=== PATIENT | male | born 1990 | race American Indian/Alaskan Native ===

== ENCOUNTER 2020-10-02 18:38 | Emergency (ER) | payer SELFPAY ==
--- NOTE | 2020-10-02 18:48 | ED.OVERDOSE ---
HPI - Overdose General Chief Complaint: Overdose Stated Complaint: od Time Seen by Provider: 10/02/20 18:43 Source: patient and EMS Mode of arrival: EMS Limitations: other (intoxication) History of Present Illness HPI Narrative: 29 yo male admits to smoking PCP was found by EMS with snoring respiration and pinpoint pupils received 4mg narcan IN x 2 by bystanders then 0.5mg IV narcan with EMS, he denies knowing he took opiates and states he has never used them before pateient denies SI/HI MD complaint: accidental overdose Onset (ago): minute(s) Context: Accidental Overdose: wanted to get high Treatments Prior to Arrival: narcan Related Data Home Medications Medication Instructions Recorded Confirmed No Known Home Meds 10/02/20 10/02/20 Allergies Allergy/AdvReac Type Severity Reaction Status Date / Time shellfish derived Allergy Unknown ITCHY Verified 10/02/20 21:28 [SHELLFISH DERIVED] THROAT/EYE SWELLING Review of Systems Review of Systems: Constitutional : No Fever, pos Chills ENT/Mouth : No Ear Pain, No Nasal Congestion, No sore throat Eyes: No Eye Pain, No Swelling, No Redness Cardiovascular : No Chest Pain, No SOB Respiratory : No Cough, No Sputum, No Dyspnea Gastrointestinal : No Nausea, No Vomiting, No Diarrhea, No Hematochezia, No Melena Genitourinary : No Dysuria, No Urinary Frequency, No Hematuria Musculoskeletal : No Myalgias Skin : No Skin Lesions, No rash Neuro : No Weakness, No Numbness, No Paresthesias, No Dizziness, No Headache Psych : positive Anxiety, no Depression, no SI/HI Heme/Lymph: No Lymphadenopathy Endocrine : No Polyuria, No Polydipsia All other systems reviewed and are negative REPLACED BY [facility] Past Medical History Attestation statement: The following information was validated with the patient. Medical History Substance abuse Social History Social History Smoking Status: Current some day smoker Use of substances other than those prescribed or required for medical reasons: Yes Substance Use Type: Hallucinogens Substance Use Frequency: Socially Last Used Substance: Just Prior to Admission Advance Directives: No Advance Directives Information Provided: No Physical Exam Vital Signs: Vital Signs: Last Vital Signs Temp 97.5 F 10/02/20 19:58 Pulse 74 10/02/20 22:00 Resp 9 L 10/02/20 22:00 BP 102/74 10/02/20 22:00 Pulse Ox 98 10/02/20 22:00 Body Mass Index 27.3 Appearance: Alert. Oriented X3. No acute distress. Anxious slightly intoxicated Eyes: Pupils equal, round and reactive to light. 4mm some nystagmus vertical noted ENT: Pharynx normal. Neck: Normal inspection. Neck supple. CVS: Normal heart rate and rhythm. Pulses normal. Respiratory: No respiratory distress. Breath sounds normal. Abdomen: Soft and non-tender. Skin: Skin warm and dry. Normal skin color. Normal skin turgor. Extremities: No lower extremity edema. No calf ttp Neuro: Oriented X 3. No motor deficit. No sensory deficit. Course Course Course Narrative: patient easily woken will allow him to continue to rest at this time, once more awake can be DC MDM - Overdose MDM Narrative Medical decision making narrative: 29 yo male states he thought he was using PCP but then required narcan multiple doses - will need observation, denies SI/HI, states he doesn't use heroin, he has no signs of trauma. Discharge Plan Discharge Clinical Impression: Drug overdose Qualifiers: Encounter type: initial encounter Injury intent: accidental or unintentional Qualified Code(s): T50.901A - Poisoning by unspecified drugs, medicaments and biological substances, accidental (unintentional), initial encounter Patient Disposition: Home, Self-Care Instructions: Polysubstance Abuse (ED) Additional Instructions: return to ED for any worsening symptoms or concerns Prescriptions: No Action No Known Home Meds RF: 0
[2020-10-02 18:56] VITALS: BP 110/80; BP 133/92; PULSE 91; RESP 12; TEMP 36.4; O2SAT 100; O2SAT 99; BMI 27.3
[2020-10-02 19:58] VITALS: BP 100/65; PULSE 93; RESP 12; TEMP 36.4; O2SAT 100
[2020-10-02 22:00] VITALS: BP 102/74; PULSE 74; RESP 9; O2SAT 98
--- NOTE | 2020-10-02 23:12 | PC.NURSE ---
patient sleeping. Respiratory rate equal and unlabored. Patient still unable to give urine sample.
[2020-10-03] VITALS: BP 111/69; PULSE 84; RESP 16; O2SAT 98
[2020-10-03 02:00] VITALS: BP 111/69; PULSE 84; RESP 16; TEMP 36.4; O2SAT 98
[2020-10-03 04:00] VITALS: BP 109/64; PULSE 78; RESP 13; O2SAT 98
== END 2020-10-03 04:20 | disposition home or self-care (01) ==
LOC: HO.ED 18:58
PROVIDERS: Emergency Provider Emergency Medicine
DX: T40.991A Poisoning by other psychodysleptics [hallucinogens], accidental (unintentional), initial encounter (principal); F17.200 Nicotine dependence, unspecified, uncomplicated; Z71.6 Tobacco abuse counseling; Y92.9 Unspecified place or not applicable
CPT/HCPCS: 99283; 99285

== ENCOUNTER 2020-11-08 07:10 | Emergency (ER) | payer OTHER, SELFPAY ==
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
[2020-11-08 07:22] VITALS: BP 120/62; PULSE 70; RESP 18; TEMP 36.9; O2SAT 97; BMI 28.2
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
== END 2020-11-08 08:58 | disposition home or self-care (01) ==
PROVIDERS: Emergency Provider Emergency Medicine
DX: S29.012A Strain of muscle and tendon of back wall of thorax, initial encounter (principal); V43.62XA Car passenger injured in collision with other type car in traffic accident, initial encounter; F16.10 Hallucinogen abuse, uncomplicated; F17.200 Nicotine dependence, unspecified, uncomplicated; Y93.89 Activity, other specified; Y92.414 Local residential or business street as the place of occurrence of the external cause; Y99.9 Unspecified external cause status
CPT/HCPCS: 72072; 72100; 99283

== ENCOUNTER 2021-10-12 11:49 | Outpatient (REF) | payer SELFPAY ==
[2021-10-12 12:15] LABS: Binax Internal Control QC Valid; Binax Now Covid-19 Ag Positive (Negative)
== END 2021-10-12 11:50 | disposition home or self-care (01) ==
LOC: HO.LAB 11:49
PROVIDERS: Visit Provider Internal Medicine
DX: Z20.822 Contact with and (suspected) exposure to COVID-19 (principal)
CPT/HCPCS: 36415; C9803

== ENCOUNTER 2023-05-23 09:39 | Emergency (ER) | payer MEDICAID, SELFPAY ==
[2023-05-23] VITALS (7 sets, daily range): BP systolic 102–142; BP diastolic 46–98; PULSE 59–79; RESP 13–16; TEMP 36.2–36.8; O2SAT 90–99; BMI 29.0
--- NOTE | ~2023-05-23 | XR_ITS ---
EXAMINATION: XR CHEST CLINICAL INFORMATION: Shortness of breath COMPARISON: None available. TECHNIQUE: Frontal view of the chest was obtained. FINDINGS: No significant abnormality is noted involving the heart, lungs, mediastinum, bony thorax or soft tissues. XR/XR chest 1V IMPRESSION: Unremarkable examination.
--- NOTE | 2023-05-23 09:54 | PC.NURSE ---
Patient found sleeping in car, admits to drinking 3 beers and doing 1 bag of pcp about 3 hours ago. Sleepy but arousable to tactile stimulation. alert and oriented. Denies pain, changed over into hospital attire.
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
[2023-05-23] MEDS: Naloxone HCl Nasal 4 MG SPRAY NOSTRILALT (11:04)
--- NOTE | 2023-05-23 11:06 | PC.NURSE ---
Patient alert to verbal stimulation but lethargic, narcan given per md order
[2023-05-23 11:41] LABS: MANUAL DIFF FLAG NO
[2023-05-23 11:59] LABS: Acetaminophen LAB < 17 mcg/mL (<30); Salicylate < 5.0 mg/dL (15-30)
[2023-05-23 12:00] LABS: Alanine Aminotransferase 20 U/L (0-40); Albumin Level 4.5 g/dL (3.5-5.0); Alkaline Phosphatase 108 U/L (39-117); Anion Gap 10 (12-20); Aspartate Amino Transferase 18 U/L (5-37); Bilirubin Total 0.4 mg/dL (0.0-1.0); Blood Urea Nitrogen 12 mg/dL (9-16); Calcium 9.7 mg/dL (8.4-10.2); Carbon Dioxide 29 mmol/L (22-29); Chloride 108 mmol/L (96-108); Creatinine Clr Calc Pharmacy 110.1; Estimated Glomerular Filt Rate > 60; Ethanol < 10 mg/dL; Glucose Random 84 mg/dL (60-115); Potassium 4.1 mmol/L (3.3-5.1); Sodium 143 mmol/L (135-145); Total Protein 7.8 g/dL (6.5-8.0)
[2023-05-23 12:04] LABS: Basophils Percent Auto 0.4 % (0-2); Eosinophils Absolute Auto 0.2 X10*3/uL (0.0-0.4); Eosinophils Percent Auto 2.8 % (0-4); Hematocrit 45.2 % (42.0-52.0); Imm Gran Abs Auto 0.03 X10*3/uL (0.00-0.03); Imm Gran Pct Auto 0.4 % (0.0-0.4); Lymphocytes Absolute Auto 2.6 X10*3/uL (1.2-4.9); Lymphocytes Percent Auto 32.2 % (20-40); Mean Corpuscular Hemoglobin 26.8 pg (27.0-33.0); Mean Corpuscular Volume 86.4 fL (80.0-98.0); Mean Platelet Volume 10.8 fL (9.4-12.4); Monocytes Absolute Auto 0.9 X10*3/uL (0.1-1.2); Monocytes Percent Auto 10.9 % (2-11); Neutrophils Absolute Auto 4.3 x10*3/uL (2.0-8.3); Neutrophils Percent Auto 53.3 % (45-73); Platelet Count 282 X10*3/uL (160-400); Red Blood Count 5.23 X10*6/uL (4.60-5.80); Red Cell Distribution Width 14.3 % (11.0-16.0); White Blood Count 8.1 X10*3/uL (4.8-10.8)
--- NOTE | 2023-05-23 12:31 | PC.NURSE ---
Seen by care team does not want detox at this time. Provided with food and fluids per patients request.
--- NOTE | 2023-05-23 12:39 | MHC.RECOVSUP ---
Met with pt in ED18 who is here for STEFFANY. Pt reports taking 1 percocet orally a day with no history or ATS or MAT, pt has a history of overdosing 2 times with the last one 2 years ago. Pt is currently not interested in ATS and has no other questions or concerns at this time.
--- NOTE | 2023-05-23 14:09 | PC.NURSE ---
Resting comfortably in bed, rr even and unlabored, nsr on monitor
--- NOTE | 2023-05-23 19:16 | PC.NURSE ---
assumed care of patient at 1900, pt laying in bed comfortably, offers no complaints or concerns to this RN at this time. Pt respirations even and unlabored, skin pwd, normal sinus on monitor. Awaiting D/C orders from CLIFF zapata
== END 2023-05-23 19:36 | disposition home or self-care (01) ==
PROVIDERS: Physician Assistant; Emergency Provider Emergency Medicine
DX: F16.10 Hallucinogen abuse, uncomplicated (principal); R06.02 Shortness of breath
CPT/HCPCS: 36415; 71045; 80053; 80143; 80179; 80307; 85025; 99284; 99285

== ENCOUNTER 2023-06-05 18:40 | Emergency (ER) | payer MEDICAID, SELFPAY ==
[2023-06-05 19:02] VITALS: BP 129/84; PULSE 98; RESP 18; TEMP 36.8; O2SAT 98; BMI 29.0
--- NOTE | 2023-06-05 20:54 | PC.NURSE ---
this rn assumed care of pt @ 1900. pt placed on cardiac and spo2 monitor. lights dimmed. pt calm and cooperative
--- NOTE | 2023-06-05 21:46 | ED_ITS ---
HPI - General Adult General Chief complaint: ETOH/Substance Use Stated complaint: narcotics Time Seen by Provider: 06/05/23 21:03 Source: patient Mode of arrival: ambulatory History of Present Illness HPI narrative: 32-year-old male who is brought in by police for attempting to shoplift children's toys from [employer] while high on PCP. He denies any current complaints of shortness of breath, chest pain/palpitations, abdominal discomfort or nausea/vomiting. Patient states that he uses PCP everyday and denies any IVDA, denies any suicidal ideation and denies interest in detox. Related Data Previous Rx's Medication Instructions Recorded cyclobenzaprine 10 mg tablet 10 mg PO TID PRN muscle spasm #14 11/08/20 tabs ibuprofen 600 mg tablet 600 mg PO Q6H PRN pain #30 tabs 11/08/20 lidocaine 4 % topical patch 1 patch topical DAILY PRN pain #10 11/08/20 ea naloxone 4 mg/actuation nasal 4 mg intranasal Q2M PRN opioid 05/23/23 spray (Narcan) overdose #2 ea Allergies Allergy/AdvReac Type Severity Reaction Status Date / Time shellfish derived Allergy Unknown ITCHY Verified 10/02/20 21:28 [SHELLFISH DERIVED] THROAT/EYE SWELLING Review of Systems Review of Systems: Pertinent positives and negatives as stated in HPI [facility] Past Medical History Source: nursing notes reviewed Medical History Substance abuse Social History Social History Alcohol intake: current Alcohol intake frequency: a few times a week Smoked in Last 30 Days: Yes Use of substances other than those prescribed or required for medical reasons: Yes Substance Use Type: Other Advance Directives: No Advance Directives Information Provided: No Physical Exam ED Vital Signs: Vital Signs - 24 hr 06/05/23 19:02 Temperature 98.2 F Pulse Rate 98 Respiratory Rate 18 Blood Pressure 129/84 Pulse Oximetry 98 Oxygen Delivery Method Room Air BMI result Body Mass Index 29.0 VITAL SIGNS: Reviewed. GENERAL: Well developed, well nourished, in no acute distress. HEAD: Normocephalic/atraumatic EYES: PERRLA, EOMI EARS: Ext canals without abnormality LUNGS: Normal breath sounds. No adventitious sounds or accessory muscle use. SpO2<98> CARDIOVASCULAR: Regular rate and rhythm without noted murmurs ABDOMEN: Soft, non-tender, non-distended with bowel sounds. MUSCULOSKELETAL: No tenderness, deformities, or effusions noted on gross inspection. EXTREMITIES: No cyanosis, clubbing or edema. SKIN: Inspection of the skin reveals no rashes NEUROLOGIC: Alert and oriented x 4. Strength and sensation to light touch were grossly intact x 4. Medical Decision Making Medical Decision Making MDM Narrative: 32-year-old male with history and clinical presentation of chronic PCP use and not currently interested in detox and denies any suicidal ideation, patient has been observed for 2 hours and will be discharged with home Narcan. Patient will not be discharged until he is known to have a safe ride. Differential Diagnosis Differential Diagnoses: The differential diagnosis associated with the presentation includes Please see the discussion above Discharge Plan Discharge Clinical Impression: Phencyclidine (PCP) use disorder, mild, abuse Patient Disposition: Home, Self-Care Instructions: Polysubstance Abuse (ED) Additional Instructions: 1. Resume all home medications as prescribed. 2. Please do not hesitate to return to the emergency room for any help that you would like in stopping drug use. Prescriptions: No Action cyclobenzaprine 10 mg tablet 10 mg PO TID PRN (Reason: muscle spasm) Qty: 14 0RF lidocaine 4 % adhesive patch,medicated 1 patch topical DAILY PRN (Reason: pain) Qty: 10 0RF Rx Instructions: may leave on for up to 12 hrs ibuprofen 600 mg tablet 600 mg PO Q6H PRN (Reason: pain) Qty: 30 0RF naloxone [Narcan] 4 mg/actuation spray,non-aerosol 4 mg intranasal Q2M PRN (Reason: opioid overdose) Qty: 2 0RF Rx Instructions: spray 1 dose into ONE nostril; alternate nostrils w each dose until help arrives
[2023-06-05 21:52] VITALS: BP 102/59; PULSE 75; RESP 13; TEMP 36.9; O2SAT 96
[2023-06-06 00:44] VITALS: BP 98/58; PULSE 80; RESP 12; O2SAT 98
--- NOTE | 2023-06-06 01:12 | PC.NURSE ---
late entry- pt discharge orders placed. pt remains sleepy at this time. pt arousable to name and painful stimuli. per chargeback analyst okay to let pt sleep at this time
[2023-06-06 02:31] VITALS: BP 119/83; PULSE 58; RESP 17; TEMP 36.4; O2SAT 100
[2023-06-06] MEDS: Naloxone HCl Nasal TAKE HOME 4 MG SPRAY 8 MG NOSTRILALT (02:31)
--- NOTE | 2023-06-06 02:35 | PC.NURSE ---
pt awake and states ready to go home. vss. pt ambulates independently. pt provided with home narcan. pt calm and cooperative. pt provided with discharge packet. pt verbalized understanding of discharge plan. pt walked to decon to obtain belongings
== END 2023-06-06 02:39 | disposition home or self-care (01) ==
PROVIDERS: Emergency Provider Student in an Organized Health Care Education/Training Program
DX: F16.10 Hallucinogen abuse, uncomplicated (principal); Z79.899 Other long term (current) drug therapy
CPT/HCPCS: 99283; 99284

== ENCOUNTER 2023-07-28 02:27 | Emergency (ER) | payer MEDICAID, SELFPAY ==
--- NOTE | 2023-07-28 | ECG_ITS ---
Test Reason : AMS Blood Pressure : / mmHG Vent. Rate : 061 BPM Atrial Rate : 061 BPM P-R Int : 134 ms QRS Dur : 094 ms QT Int : 422 ms P-R-T Axes : 064 067 033 degrees QTc Int : 424 ms Normal sinus rhythm Normal ECG When compared with ECG of 16-JUL-2018 00:17, No significant change was found Referred By: Generic ED Physician Electronically Signed By:CAIN SOLARES MD
[2023-07-28 02:40] VITALS: BP 138/98; BP 140/80; PULSE 61; PULSE 63; RESP 18; TEMP 36.4; O2SAT 97; BMI 28.0
--- NOTE | 2023-07-28 02:43 | PC.NURSE ---
Pt presents to ED via EMS for AMS. Per EMS, pt was found with PD on the sidewalk. Pt was confused, not answering questions appropriately. Pt admitted to drug use, but was unable to tell us what he took. Pt was tracking okay, pupils PERRLA. Pt is unable or unwilling to answer questions verbally but can nod yes or no in response. Pt was connected to monitoring manager, EKG obtained, and pt is getting bloodwork at this time.
[2023-07-28 02:46] VITALS: BP 140/88; PULSE 61; RESP 18; TEMP 36.4; O2SAT 100
[2023-07-28] MEDS: Naloxone HCl Nasal 4 MG SPRAY NOSTRILALT (02:50)
[2023-07-28 02:52] LABS: Basophils Percent Auto 0.2 % (0-2); Eosinophils Absolute Auto 0.1 X10*3/uL (0.0-0.4); Hematocrit 45.6 % (42.0-52.0); Hemoglobin 14.3 g/dl (14.0-18.0); Imm Gran Abs Auto 0.02 X10*3/uL (0.00-0.03); Imm Gran Pct Auto 0.2 % (0.0-0.4); Lymphocytes Absolute Auto 2.3 X10*3/uL (1.2-4.9); Lymphocytes Percent Auto 25.2 % (20-40); MANUAL DIFF FLAG NO; Mean Corpuscular HGB Conc 31.4 g/dl (31.0-36.0); Mean Corpuscular Hemoglobin 26.6 pg (27.0-33.0); Mean Corpuscular Volume 84.8 fL (80.0-98.0); Mean Platelet Volume 10.4 fL (9.4-12.4); Monocytes Absolute Auto 0.7 X10*3/uL (0.1-1.2); Neutrophils Absolute Auto 6.1 x10*3/uL (2.0-8.3); Neutrophils Percent Auto 65.4 % (45-73); Platelet Count 288 X10*3/uL (160-400); Red Blood Count 5.38 X10*6/uL (4.60-5.80); Red Cell Distribution Width 14.1 % (11.0-16.0); White Blood Count 9.3 X10*3/uL (4.8-10.8)
--- NOTE | 2023-07-28 02:54 | ED.AMS ---
HPI - Altered Mental Status General Chief Complaint: Altered Mental Status Stated Complaint: ams Time Seen by Provider: 07/28/23 02:39 Source: patient and EMS Mode of arrival: EMS History of Present Illness HPI narrative: 32-year-old male who is brought in by EMS after please department found patient on the sidewalk and EMS reports that patient acting altered . Initially, patient with minimal verbal interaction but answering yes and no to questions. Patient admits to drug use but is unsure of what drugs he took today. Related Data Previous Rx's Medication Instructions Recorded cyclobenzaprine 10 mg tablet 10 mg PO TID PRN muscle spasm #14 11/08/20 tabs ibuprofen 600 mg tablet 600 mg PO Q6H PRN pain #30 tabs 11/08/20 lidocaine 4 % topical patch 1 patch topical DAILY PRN pain #10 11/08/20 ea naloxone 4 mg/actuation nasal 4 mg intranasal Q2M PRN opioid 05/23/23 spray (Narcan) overdose #2 ea Allergies Allergy/AdvReac Type Severity Reaction Status Date / Time shellfish derived Allergy Unknown ITCHY Verified 10/02/20 21:28 [SHELLFISH DERIVED] THROAT/EYE SWELLING Review of Systems Review of Systems: Pertinent positives and negatives as stated in HPI PMFSH Past Medical History Source: nursing notes reviewed Medical History Substance abuse Social History Social History Alcohol intake: current Alcohol intake frequency: a few times a week Substance Use Type: Other Advance Directives: No Advance Directives Information Provided: Yes Physical Exam ED Vital Signs: Vital Signs - 24 hr 07/28/23 02:40 07/28/23 02:46 Temperature 97.5 F 97.5 F Pulse Rate 63 61 Respiratory Rate 18 18 Blood Pressure 140/80 H 140/88 H Pulse Oximetry 97 100 Oxygen Delivery Method Room Air Room Air BMI result Body Mass Index 28.0 VITAL SIGNS: Reviewed. GENERAL: Well developed, well nourished, in no acute distress. HEAD: Normocephalic/atraumatic EYES: PERRLA, EOMI EARS: Ext canals without abnormality, TMs non-bulging and non-erythematous NOSE: Nares patent bilateral OROPHARYNX: no oral lesions noted, posterior pharynx clear and non-erythematous without noted tonsillar enlargement/erythema/exudates NECK: Supple, no adenopathy LUNGS: Normal breath sounds. No adventitious sounds or accessory muscle use. SpO2<100> CARDIOVASCULAR: Regular rate and rhythm without noted murmurs ABDOMEN: Soft, non-tender, non-distended with bowel sounds. MUSCULOSKELETAL: No tenderness, deformities, or effusions noted on gross inspection. EXTREMITIES: No cyanosis, clubbing or edema. SKIN: Inspection of the skin reveals no rashes NEUROLOGIC: Alert and oriented x 3. Strength and sensation to light touch were grossly intact x 4, cranial nerves 2-12 are grossly intact. Medical Decision Making Medical Decision Making MDM Narrative: 32-year-old male with history and clinical presentation, DDX: Highly suspicious for illicit substance especially on review of prior documentation which demonstrates that he has been here previously for drug overdose, polysubstance abuse as well as PCP use. Will obtain basic labs and toxicology. Patient received 4 mg of Narcan, patient much better at communication, hemodynamically stable. 0337: Informed by nursing that patient left the emergency department. Differential Diagnosis Differential Diagnoses: The differential diagnosis associated with the presentation includes Please see the discussion above Lab Data 07/28/23 02:47 07/28/23 02:47 Labs: Lab Results 07/28/23 Range/Units 02:47 WBC 9.3 (4.8-10.8) X10*3/uL RBC 5.38 (4.60-5.80) X10*6/uL Hgb 14.3 (14.0-18.0) g/dl Hct 45.6 (42.0-52.0) % MCV 84.8 (80.0-98.0) fL MCH 26.6 L (27.0-33.0) pg MCHC 31.4 (31.0-36.0) g/dl RDW 14.1 (11.0-16.0) % Plt Count 288 (160-400) X10*3/uL MPV 10.4 (9.4-12.4) fL Immature Gran % (Auto) 0.2 (0.0-0.4) % Neut % (Auto) 65.4 (45-73) % Lymph % (Auto) 25.2 (20-40) % Christian % (Auto) 8.0 (2-11) % Eos % (Auto) 1.0 (0-4) % Baso % (Auto) 0.2 (0-2) % Lymph # (Auto) 2.3 (1.2-4.9) X10*3/uL Christian # (Auto) 0.7 (0.1-1.2) X10*3/uL Eos # (Auto) 0.1 (0.0-0.4) X10*3/uL Baso # (Auto) 0.0 (0.0-0.2) X10*3/uL Abs Immat Gran (auto) 0.02 (0.00-0.03) X10*3/uL Absolute Neuts (auto) 6.1 (2.0-8.3) x10*3/uL Absolute Nucleated RBC 0.000 (0.0-0.012) X10*3/uL Nucleated RBC % (auto) 0.0 (0.0-0.2) /100WBC Sodium 144 (135-145) mmol/L Potassium 4.1 (3.3-5.1) mmol/L Chloride 110 H (96-108) mmol/L Carbon Dioxide 22 (22-29) mmol/L Anion Gap 16 (12-20) BUN 12 (9-16) mg/dL Creatinine 1.12 (0.5-1.4) mg/dL Estim Creat Clear Calc 117.9 Estimated GFR > 60 Random Glucose 92 (60-115) mg/dL Calcium 9.7 (8.4-10.2) mg/dL Total Bilirubin 0.4 (0.0-1.0) mg/dL AST 16 (5-37) U/L ALT 15 (0-40) U/L Alkaline Phosphatase 117 (39-117) U/L Total Protein 8.4 H (6.5-8.0) g/dL Albumin 4.9 (3.5-5.0) g/dL Ethyl Alcohol < 10 mg/dL Independent Interpretation I performed an independent interpretation of an: EKG Interpretation: Normal sinus rhythm, HR-61, no STEMI, WV/QRS/QTC is within normal limits. Critical Care Time Critical Care Time Critical Care Time: Yes Total Critical Care Time: 30 Attestation: I personally attest to this time spent taking care of the patient. Discharge Plan Discharge Clinical Impression: Mental status alteration, Polysubstance use disorder Patient Disposition: Elopement Prescriptions: No Action cyclobenzaprine 10 mg tablet 10 mg PO TID PRN (Reason: muscle spasm) Qty: 14 0RF lidocaine 4 % adhesive patch,medicated 1 patch topical DAILY PRN (Reason: pain) Qty: 10 0RF Rx Instructions: may leave on for up to 12 hrs ibuprofen 600 mg tablet 600 mg PO Q6H PRN (Reason: pain) Qty: 30 0RF naloxone [Narcan] 4 mg/actuation spray,non-aerosol 4 mg intranasal Q2M PRN (Reason: opioid overdose) Qty: 2 0RF Rx Instructions: spray 1 dose into ONE nostril; alternate nostrils w each dose until help arrives Discharge Date/Time: 07/28/23 03:35
--- NOTE | 2023-07-28 02:58 | PC.NURSE ---
After narcan, pt is now verbal, is able to tell me his name, where he is, and what month it is. However, pt denies drug use at this time and does not remember what happened or how he got to the hospital. Pt denies pain and is not in obvious distress. Pt still seems confused, is staring blankly.
[2023-07-28 03:04] LABS: Ethanol < 10 mg/dL
[2023-07-28 03:05] LABS: Alanine Aminotransferase 15 U/L (0-40); Albumin Level 4.9 g/dL (3.5-5.0); Alkaline Phosphatase 117 U/L (39-117); Anion Gap 16 (12-20); Aspartate Amino Transferase 16 U/L (5-37); Bilirubin Total 0.4 mg/dL (0.0-1.0); Blood Urea Nitrogen 12 mg/dL (9-16); Calcium 9.7 mg/dL (8.4-10.2); Carbon Dioxide 22 mmol/L (22-29); Chloride 110 mmol/L (96-108); Creatinine Clr Calc Pharmacy 117.9; Estimated Glomerular Filt Rate > 60; Glucose Random 92 mg/dL (60-115); Potassium 4.1 mmol/L (3.3-5.1); Sodium 144 mmol/L (135-145); Total Protein 8.4 g/dL (6.5-8.0)
--- NOTE | 2023-07-28 03:29 | PC.NURSE ---
When I entered the pt's room, bed was found to be empty. After searching for th pt, I found him outside of the emergency department, fully dressed in his own clothes (Red striped shirt, black jeans, and garzon backpack.) I explained to the patient that he needs to go back inside so we can figure out what triggered the minimal responsiveness. Pt stated he is going home and would not stay. I attempted to convince pt to stay and complete treatment but he kept replying I'm going home. Charge Nurse Lyndsay and MD Booth are aware. Per MD, pt is not required to stay. Pt was A&Ox4, GCS 15, with strong and steady gait upon leaving the ER.
== END 2023-07-28 03:35 | disposition left against medical advice (07) ==
PROVIDERS: Emergency Provider Student in an Organized Health Care Education/Training Program; PCP Internal Medicine
DX: R41.82 Altered mental status, unspecified (principal); F19.10 Other psychoactive substance abuse, uncomplicated; Z79.899 Other long term (current) drug therapy
CPT/HCPCS: 36415; 80053; 80307; 85025; 93005; 99283; 99284

== ENCOUNTER 2023-12-02 10:27 | Emergency (ER) | payer MEDICAID, SELFPAY ==
[2023-12-02 10:35] VITALS: BP 125/75; PULSE 78; RESP 16; TEMP 36.6; O2SAT 99; BMI 30.4
--- NOTE | 2023-12-02 10:47 | ED.GENADULT ---
HPI - General Adult General Chief complaint: Upper Respiratory Symptoms Stated complaint: cough Time Seen by Provider: 12/02/23 10:45 Source: patient Mode of arrival: ambulatory Limitations: no limitations History of Present Illness HPI narrative: Patient is an otherwise healthy, 33 year old male presenting with a 3 day history of a cough, sore throat, chills, nasal congestion and body aches. Patient states he is not up to date on covid or flu vaccinations, does not report any sick contacts, and no recent ABX use. MD complaint: Flu-like symptoms Onset (ago): day(s) (3) Location: neck (throat) Radiation: non-radiation Severity: mild Severity scale (1-10): 2 Pain Consistency: intermittent Relieving factors: none Exacerbating factors: none Associated symptoms: cough and fever/chills Treatments prior to arrival: none Related Data Previous Rx's Medication Instructions Recorded cyclobenzaprine 10 mg tablet 10 mg PO TID PRN muscle spasm #14 11/08/20 tabs ibuprofen 600 mg tablet 600 mg PO Q6H PRN pain #30 tabs 11/08/20 lidocaine 4 % topical patch 1 patch topical DAILY PRN pain #10 11/08/20 ea naloxone 4 mg/actuation nasal 4 mg intranasal Q2M PRN opioid 05/23/23 spray (Narcan) overdose #2 ea Allergies Allergy/AdvReac Type Severity Reaction Status Date / Time shellfish derived Allergy Unknown ITCHY Verified 10/02/20 21:28 [SHELLFISH DERIVED] THROAT/EYE SWELLING Review of Systems Constitutional: Constitutional: Reports no additional constitutional complaints, Reports body ache(s), Reports chills, Denies fever(s) and Denies night sweats Eyes: Eyes: Reports no additional eye complaints, Denies blurry vision, Denies change in vision, Denies diplopia, Denies eye discharge, Denies loss of vision and Denies eye pain ENT: Denies dizziness, Reports nasal congestion and Reports sore throat Cardiovascular: Cardiovascular: Reports no additional cardiovascular complaints, Denies chest pain, Denies lightheadedness, Denies Loss of Consciousness and Denies dyspnea Respiratory: Respiratory: Reports no additional respiratory complaints and Denies dyspnea Gastrointestinal: Gastrointestinal: Reports no additional gastrointestinal complaints, Denies abdominal pain, Denies melena, Denies hematochezia, Denies change in bowel habits and Denies change in stool character Genitourinary: Genitourinary: Reports no additional male genitourinary complaints, Denies hematuria, Denies oliguria, Denies difficulty urinating, Denies dysuria, Denies urinary frequency, Denies urinary hesitancy, Denies urinary incontinence and Denies urinary urgency Musculoskeletal: Musculoskeletal: Reports no additional musculoskeletal complaints, Reports myalgias, Denies numbness and Denies tingling Neurologic: Denies dizziness, Denies loss of vision, Denies numbness and Denies tingling Psychiatric: Psychiatric: Reports no additional psychiatric complaints Endocrine: Endocrine: Reports no additional endocrine complaints Hematologic/Lymphatic: Hematologic/Lymphatic: Reports no additional hematologic/lymphatic complaints Allergic/Immunologic: Allergic/Immunologic: Reports no additional allergic/immunologic complaints [facility] Past Medical History Attestation statement: The following information was validated with the patient. Source: old records reviewed and nursing notes reviewed Medical History Substance abuse Social History Social History Alcohol intake: current Alcohol intake frequency: a few times a week Smoked in Last 30 Days: Yes Use of substances other than those prescribed or required for medical reasons: No Substance Use Type: Other Advance Directives: No Physical Exam ED Vital Signs: Vital Signs - 24 hr 12/02/23 10:35 12/02/23 12:15 12/02/23 12:15 Temperature 97.9 F 98 F Pulse Rate 78 70 Respiratory Rate 16 16 Blood Pressure 125/75 118/60 Pulse Oximetry 99 98 98 Oxygen Delivery Method Room Air Room Air Room Air BMI result Body Mass Index 30.4 Const General: cooperative, comfortable, no acute distress, alert and awake Nutritional Appearance: average body habitus Orientation/consciousness: patient oriented x3 Limitations: no limitations HENMT Head: Yes normal to inspection Ears: hearing grossly normal bilaterally General nose exam: Normal external nose present Face and sinus: Yes normal facial exam Mouth: Normal oral and palatal mucosa present Eyes General: appearance normal, both eyes and all related structures Periorbital: periorbital findings normal Eyelids: Yes eyelids normal Conjunctivae: conjunctivae normal Pupils: Equal, round and reactive pupils present EOM: EOMs intact bilaterally Neck Neck: Yes normal visual inspection, Yes full ROM and Yes no lymphadenopathy Chest Chest palpation & inspection: normal inspection of the chest Resp Effort & Inspection: normal respiratory effort and able to speak in complete sentences Auscultation: clear to auscultation bilaterally Cardio Jugular venous distension: no JVD Palpation: normal PMI Rate: regular rate Rhythm: regular rhythm GI Inspection: Yes normal to inspection Neuro General: patient oriented x3 Cranial nerves: Yes Equal, round and reactive pupils present Cognition (Neuro): normal cognition Motor exam (neuro): 5/5 motor strength present throughout Sensory Exam: Normal double simultaneous stimulation for sensation Coordination: [id number] test normal Extrem General: Yes normal to inspection, Yes full ROM and Yes capillary refill normal Psych Appearance: grossly normal Mental Status: mental status grossly normal Affect: normal affect Attitude: cooperative Thought process: Normal thought process present Thought content: Normal thought content present Insight: Good insight present (Psych) Medical Decision Making Medical Decision Making [facility] Narrative: Patient is a 33 year old assigned male at with no reported medical history presenting to the emergency department today with a cough. Patient's physical exam was unremarkable. Patient's COVID-19, influenza, and RSV tests were negative. I explained my physical exam findings as well as all test results to the patient. I answered all questions asked by the patient. I stressed the importance of the patient taking his medication as prescribed. I stressed the importance of the patient following up with his primary care provider. I stressed the importance of the patient returning to the emergency department immediately if his symptoms were to worsen or if he were to develop any dizziness, shortness of breath, difficulty breathing, chest pain, blurry vision, loss of vision, nausea, vomiting, abdominal pain, fever, chills, back pain, or any other complaints. Patient verbalized agreement and understanding with this treatment plan and discharge. Differential Diagnosis Differential Diagnoses: The differential diagnosis associated with the presentation includes URI COVID-19 Influenza RSV Admission/Observation Consideration of admission/observation: Escalation of care including admission/observation considered Patient would have been admitted to the hospital had his work up had any findings where hospital admission was appropriate and his clinical presentation warranted hospital admission. Lab Data [facility] Lab Attestation statement: I reviewed the patient's lab results. My interpretation of these results are in the [facility] Rationale portion of this note. Labs: Lab Results 12/02/23 12/02/23 Range/Units 10:41 11:35 COVID-19 (JOSE) Negative (Negative) COVID-19 Clin Com See Note Influenza Type A (PCR) NEGATIVE (Negative) Influenza Type B (PCR) NEGATIVE (Negative) RSV RNA Qual (PCR) NEGATIVE (Negative) SARS-CoV-2 RNA (RT-PCR) NEGATIVE (Negative) Discharge Plan Discharge Clinical Impression: Upper respiratory infection Patient Disposition: Home, Self-Care Instructions: Upper Respiratory Infection (DC) Additional Instructions: Follow up with your primary care provider. Return to the emergency department immediately if your symptoms worsen or if you develop any dizziness, shortness of breath, difficulty breathing, chest pain, blurry vision, loss of vision, nausea, vomiting, abdominal pain, fever, chills, back pain, or any other complaints. Prescriptions: No Action cyclobenzaprine 10 mg tablet 10 mg PO TID PRN (Reason: muscle spasm) Qty: 14 0RF lidocaine 4 % adhesive patch,medicated 1 patch topical DAILY PRN (Reason: pain) Qty: 10 0RF Rx Instructions: may leave on for up to 12 hrs ibuprofen 600 mg tablet 600 mg PO Q6H PRN (Reason: pain) Qty: 30 0RF naloxone [Narcan] 4 mg/actuation spray,non-aerosol 4 mg intranasal Q2M PRN (Reason: opioid overdose) Qty: 2 0RF Rx Instructions: spray 1 dose into ONE nostril; alternate nostrils w each dose until help arrives Referrals: Renetta Baires MD [Primary Care Provider] - Stand Alone Forms: Work/School Release Interventions: ED Discharge Assessment Last Done: 12/02/23 12:42 Discharge Date/Time: 12/02/23 12:42 Print Language: Slovenian
[2023-12-02 11:28] LABS: COVID-19 Test Negative (Negative); IDNOW Serial# 152EDE1D
[2023-12-02 12:15] VITALS: BP 118/60; PULSE 70; RESP 16; TEMP 36.6; O2SAT 98
[2023-12-02 12:25] LABS: Influenza A PCR NEGATIVE (Negative); Influenza B PCR NEGATIVE (Negative); Resp Syncy Virus RNA Qual PCR NEGATIVE (Negative); SARS COV2 PCR INHOUSE NEGATIVE (Negative)
== END 2023-12-02 12:42 | disposition home or self-care (01) ==
PROVIDERS: Physician Assistant Medical; Emergency Provider Emergency Medicine Emergency Medical Services; PCP Internal Medicine
DX: J06.9 Acute upper respiratory infection, unspecified (principal); Z11.52 Encounter for screening for COVID-19; Z20.828 Contact with and (suspected) exposure to other viral communicable diseases
CPT/HCPCS: 0241U; 87635; 99283; 99284

== ENCOUNTER 2024-02-18 03:50 | Emergency (ER) | payer MEDICAID, SELFPAY ==
--- NOTE | ~2024-02-18 | CT_ITS ---
EXAMINATION: CT HEAD WITHOUT CONTRAST CT CERVICAL SPINE WITHOUT CONTRAST CLINICAL INFORMATION: Fall. Unresponsive. COMPARISON: None available. TECHNIQUE: Contiguous axial imaging was performed through the head and cervical spine without intravenous administration of contrast. Sagittal and coronal reformatted images also obtained. This CT examination was performed using dose optimization techniques as appropriate, variously including the following: *Automated exposure control *Adjustment of mA and/or kV according to patient size (this includes techniques or standardized protocols for targeted exams where dose is matched to indication/reason for exam; i.e. extremities or head) *Use of iterative reconstruction technique DLP: 1265 mGy-cm FINDINGS: The lateral, third and fourth ventricles are normally outlined. The cortical sulci and basal cisterns are normally outlined as well. There is no acute territorial defect, hemorrhage or midline shift. The extra-axial spaces are unremarkable. Calvarium/scalp: Intact. There is mild right parietal scalp soft tissue swelling. Maxillofacial sinuses and mastoids: Clear as visualized. Cervical spine: There is straightening of the expected cervical spine curvature. Disc spaces are maintained. The spinal canal and neuroforamen are patent. The bone mineralization is normal. There is no fracture. The soft tissues are unremarkable. The visualized upper lung de guzman are clear. CT/CT cervical spine wo IV con IMPRESSION: 1. No acute intracranial pathology. Mild right parietal scalp soft tissue swelling 2. No evidence of acute cervical spine traumatic injury.
--- NOTE | ~2024-02-18 | CT_ITS ---
EXAMINATION: CT HEAD WITHOUT CONTRAST CT CERVICAL SPINE WITHOUT CONTRAST CLINICAL INFORMATION: Fall. Unresponsive. COMPARISON: None available. TECHNIQUE: Contiguous axial imaging was performed through the head and cervical spine without intravenous administration of contrast. Sagittal and coronal reformatted images also obtained. This CT examination was performed using dose optimization techniques as appropriate, variously including the following: *Automated exposure control *Adjustment of mA and/or kV according to patient size (this includes techniques or standardized protocols for targeted exams where dose is matched to indication/reason for exam; i.e. extremities or head) *Use of iterative reconstruction technique DLP: 1265 mGy-cm FINDINGS: The lateral, third and fourth ventricles are normally outlined. The cortical sulci and basal cisterns are normally outlined as well. There is no acute territorial defect, hemorrhage or midline shift. The extra-axial spaces are unremarkable. Calvarium/scalp: Intact. There is mild right parietal scalp soft tissue swelling. Maxillofacial sinuses and mastoids: Clear as visualized. Cervical spine: There is straightening of the expected cervical spine curvature. Disc spaces are maintained. The spinal canal and neuroforamen are patent. The bone mineralization is normal. There is no fracture. The soft tissues are unremarkable. The visualized upper lung de guzman are clear. CT/CT head/brain wo IV con IMPRESSION: 1. No acute intracranial pathology. Mild right parietal scalp soft tissue swelling 2. No evidence of acute cervical spine traumatic injury.
--- NOTE | 2024-02-18 04:00 | ECG_ITS ---
Test Reason : overdose Blood Pressure : / mmHG Vent. Rate : 077 BPM Atrial Rate : 077 BPM P-R Int : 134 ms QRS Dur : 092 ms QT Int : 394 ms P-R-T Axes : 064 058 024 degrees QTc Int : 445 ms Normal sinus rhythm Normal ECG When compared with ECG of 28-JUL-2023 02:33, No significant change was found Referred By: Generic ED Physician Electronically Signed By:MARK ZAMBRANO MD
[2024-02-18 04:02] VITALS: BP 108/67; BP 111/72; PULSE 77; PULSE 90; RESP 13; TEMP 36.8; O2SAT 94; O2SAT 96; BMI 29.1
--- NOTE | 2024-02-18 04:20 | ED_ITS ---
HPI - Overdose General Chief Complaint: Overdose Stated Complaint: od Time Seen by Provider: 02/18/24 04:03 Source: EMS Mode of arrival: EMS Limitations: other History of Present Illness HPI Narrative: Patient comes to the emergency room via EMS. According to EMS, police department found him overdose. EMS was unable to tell us where they found him or where they found him. Patient is minimally responsive. Related Data Previous Rx's ?Medication ?Instructions ?Recorded cyclobenzaprine 10 mg tablet 10 mg PO TID PRN muscle spasm #14 11/08/20 tabs ibuprofen 600 mg tablet 600 mg PO Q6H PRN pain #30 tabs 11/08/20 lidocaine 4 % topical patch 1 patch topical DAILY PRN pain #10 11/08/20 ea naloxone 4 mg/actuation nasal 4 mg intranasal Q2M PRN opioid 05/23/23 spray (Narcan) overdose #2 ea Allergies Allergy/AdvReac Type Severity Reaction Status Date / Time shellfish derived Allergy Unknown ITCHY Verified 02/18/24 04:06 [SHELLFISH DERIVED] THROAT/EYE SWELLING Review of Systems 2 Review of Systems: Yes Unobtainable due to mental condition [facility] Past Medical History Medical History Substance abuse Social History Social History Alcohol intake: current Alcohol intake frequency: a few times a week Substance Use Type: Other Advance Directives: No Advance Directives Information Provided: Yes Do you have a plan to hurt others: No Plan Physical Exam 2 Vital Signs: Vital Signs: Last Vital Signs Temp 98.1 F 02/18/24 13:37 Pulse 78 02/18/24 13:37 Resp 18 02/18/24 13:37 BP 110/80 02/18/24 13:37 Pulse Ox 98 02/18/24 13:37 O2 Del Method Room Air 02/18/24 13:37 BMI result Body Mass Index 29.1 Const: Other: Appearance: Unresponsive, somnolent, minimally arousable, wakes up the pain and falls back asleep Eyes: Equal pupils, pinpoint ENT: Pharynx normal. Neck: Normal inspection. Neck supple. No lymph nodes noted. No crepitus CVS: Normal heart rate and rhythm. Pulses normal. Normal S1 and S2 Respiratory: No respiratory distress. Breath sounds normal. No Wheezing. No rales Abdomen: Soft and nontender. No rigidity. No distention. Skin: Skin warm and dry. Normal skin color. Normal skin turgor. Extremities: No lower extremity edema. No Lacerations. No Rash Neuro: Unable to participating cranial nerve assessment Psych: Too intoxicated/under the influence of drugs Course Reevaluation(s) Reevaluation #1: Patient is AAO x3, admitted that he used PCP last night, he feels better now, no SI, no HI, no AVH, labs were reviewed showed mild hypokalemia will replete orally, head/cervical spine CT were reviewed and unremarkable. Patient will be okay to be discharged home, ambulating in the emergency department. Time: 13:00 Medications Administered Discontinued Medications Generic Name Dose Route Start Last Admin Trade Name Freq PRN Reason Stop Dose Admin Potassium Chloride 40 meq 02/18/24 12:57 02/18/24 13:32 Potassium Chloride Packet 20 Meq Packet PO 02/18/24 12:58 40 meq ONCE ONE Administration Medical Decision Making Medical Decision Making [facility] Narrative: -my interpretation of labs: Normal hematology, normal chemistry, potassium slightly decreased at 3.2, no need for treatment, ethyl alcohol level 59, urine toxicology pending -patient's vitals stable, blood pressure 111/71, heart rate 75, oxygen saturation 99% on room air. -my interpretation of head CT and neck CT both within normal limits, no intracranial bleed, no fracture -every so often patient wakes up, turned around, falls back asleep. -patient wakes up, please assess for SI, HI, SUDE eval, detox -sign-out given to my colleague Dr. Barrera Differential Diagnosis Differential Diagnoses: The differential diagnosis associated with the presentation includes (Polysubstance abuse, alcohol abuse, intracranial bleed) Admission/Observation Consideration of admission/observation: Escalation of care including admission/observation considered (Patient' is on physician observation) Lab Data [facility] Lab Attestation statement: I reviewed the patient's lab results. 02/18/24 04:21 02/18/24 04:21 Labs: Lab Results 02/18/24 Range/Units 04:21 WBC 6.7 (4.8-10.8) X10*3/uL RBC 5.18 (4.60-5.80) X10*6/uL Hgb 13.7 L (14.0-18.0) g/dl Hct 43.1 (42.0-52.0) % MCV 83.2 (80.0-98.0) fL MCH 26.4 L (27.0-33.0) pg MCHC 31.8 (31.0-36.0) g/dl RDW 14.6 (11.0-16.0) % Plt Count 271 (160-400) X10*3/uL MPV 10.6 (9.4-12.4) fL Absolute Nucleated RBC 0.000 (0.0-0.012) X10*3/uL Nucleated RBC % (auto) 0.0 (0.0-0.2) /100WBC Sodium 142 (135-145) mmol/L Potassium 3.2 L (3.3-5.1) mmol/L Chloride 109 H (96-108) mmol/L Carbon Dioxide 20 L (22-29) mmol/L Anion Gap 16 (12-20) BUN 13 (9-16) mg/dL Creatinine 0.92 (0.5-1.4) mg/dL Estim Creat Clear Calc 117.3 Estimated GFR > 60 Random Glucose 124 H (60-115) mg/dL Calcium 9.3 (8.4-10.2) mg/dL Total Bilirubin 0.2 (0.0-1.0) mg/dL AST 20 (5-37) U/L ALT 19 (0-40) U/L Alkaline Phosphatase 116 (39-117) U/L Troponin I High Sens < 2.7 (<3.5-35.0) ng/L Total Protein 7.7 (6.5-8.0) g/dL Albumin 4.5 (3.5-5.0) g/dL Ethyl Alcohol 59 mg/dL Critical Care Time Critical Care Time Critical Care Time: Yes Total Critical Care Time: 60 Attestation: I have personally provided critical care time. Time includes review of lab data, radiology results, discussion with consultants, and monitoring for potential decompensation. Intervention performed as documented. Discharge Plan Discharge Clinical Impression: Drug overdose Patient Disposition: Home, Self-Care Instructions: Polysubstance Abuse (ED) Prescriptions: No Action cyclobenzaprine 10 mg tablet 10 mg PO TID PRN (Reason: muscle spasm) Qty: 14 0RF lidocaine 4 % adhesive patch,medicated 1 patch topical DAILY PRN (Reason: pain) Qty: 10 0RF Rx Instructions: may leave on for up to 12 hrs ibuprofen 600 mg tablet 600 mg PO Q6H PRN (Reason: pain) Qty: 30 0RF naloxone [Narcan] 4 mg/actuation spray,non-aerosol 4 mg intranasal Q2M PRN (Reason: opioid overdose) Qty: 2 0RF Rx Instructions: spray 1 dose into ONE nostril; alternate nostrils w each dose until help arrives Referrals: Renetta Baires MD [Primary Care Provider] - Interventions: ED Discharge Assessment Last Done: 02/18/24 13:37 Discharge Date/Time: 02/18/24 13:37 Print Language: Czech
--- NOTE | 2024-02-18 04:23 | MHC.EDTECH ---
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
--- NOTE | 2024-02-18 04:27 | PC.NURSE ---
Patient BIB [facility] for evaluation of overdose on unknown substance. Patient found by [place] [employer], given Narcan 4 mg intranasal prior coming to ED, unknown if patient sustained any injuries. Patient changed over into a hospital attire by security and Corie, machine shop repair technician, [facility]. VSS, EKG completed and signed by Dr. Sauceda, labs drawn and sent to lab. Patient taken to CT scan.
[2024-02-18 04:31] LABS: Hematocrit 43.1 % (42.0-52.0); Hemoglobin 13.7 g/dl (14.0-18.0); Mean Corpuscular HGB Conc 31.8 g/dl (31.0-36.0); Mean Corpuscular Hemoglobin 26.4 pg (27.0-33.0); Mean Corpuscular Volume 83.2 fL (80.0-98.0); Mean Platelet Volume 10.6 fL (9.4-12.4); Platelet Count 271 X10*3/uL (160-400); Red Blood Count 5.18 X10*6/uL (4.60-5.80); Red Cell Distribution Width 14.6 % (11.0-16.0); White Blood Count 6.7 X10*3/uL (4.8-10.8)
[2024-02-18 04:42] LABS: Ethanol 59 mg/dL
[2024-02-18 04:44] LABS: Alanine Aminotransferase 19 U/L (0-40); Albumin Level 4.5 g/dL (3.5-5.0); Alkaline Phosphatase 116 U/L (39-117); Anion Gap 16 (12-20); Aspartate Amino Transferase 20 U/L (5-37); Bilirubin Total 0.2 mg/dL (0.0-1.0); Blood Urea Nitrogen 13 mg/dL (9-16); Calcium 9.3 mg/dL (8.4-10.2); Carbon Dioxide 20 mmol/L (22-29); Chloride 109 mmol/L (96-108); Creatinine Clr Calc Pharmacy 117.3; Estimated Glomerular Filt Rate > 60; Glucose Random 124 mg/dL (60-115); Potassium 3.2 mmol/L (3.3-5.1); Sodium 142 mmol/L (135-145); Total Protein 7.7 g/dL (6.5-8.0)
--- NOTE | 2024-02-18 04:49 | PC.NURSE ---
Patient returned for CT scan.
[2024-02-18 04:51] LABS: Troponin-I High Sensitivity < 2.7 ng/L (<3.5-35.0)
[2024-02-18 05:45] VITALS: BP 111/71; PULSE 75; RESP 14; TEMP 36.6; O2SAT 99
--- NOTE | 2024-02-18 05:51 | PC.NURSE ---
Patient openshis eyes when called name and answers yes and no to questions. He denies SI/HI. Reports mild generalized pain. VSS. He refused to provide urine specimen at this time. Dr. Sauceda made aware. Plan of care ongoing.
--- NOTE | 2024-02-18 06:10 | MHC.EDTECH ---
Hourly rounds and vitals completed,patient is resting at this time.
--- NOTE | 2024-02-18 09:00 | PC.NURSE ---
Resting comfortably, breathing even and unlabored
[2024-02-18] MEDS: Potassium Chloride Packet 20 MEQ PACKET 40 MEQ PO (13:32)
[2024-02-18 13:37] VITALS: BP 110/80; PULSE 78; RESP 18; TEMP 36.7; O2SAT 98
== END 2024-02-18 13:37 | disposition home or self-care (01) ==
PROVIDERS: Emergency Provider Emergency Medicine; PCP Internal Medicine
DX: T50.901A Poisoning by unspecified drugs, medicaments and biological substances, accidental (unintentional), initial encounter (principal); F19.90 Other psychoactive substance use, unspecified, uncomplicated; Y92.9 Unspecified place or not applicable; E87.6 Hypokalemia
CPT/HCPCS: 36415; 70450; 72125; 80053; 80307; 84484; 85027; 93005; 99284

== ENCOUNTER → 2024-02-18 04:00 | Outpatient (BNV) | payer MEDICAID, SELFPAY | PROVIDERS: Emergency Provider Emergency Medicine; PCP Internal Medicine; Visit Provider Internal Medicine Cardiovascular Disease | DX: T50.911A Poisoning by multiple unspecified drugs, medicaments and biological substances, accidental (unintentional), initial encounter (principal) | CPT/HCPCS: 93010 ==